=== PATIENT | female | born 1935 | race Caucasian/White ===

== ENCOUNTER 2023-04-05 08:32 | Outpatient (RCR) | payer SELFPAY, OTHER ==
--- NOTE | 2023-04-05 10:46 | HP.PTEVAL ---
Patient's Visit Information Visit Information Visit Information: ALL SEGUNDO is a 87 year old F referred to Physical Therapy by NAHED Cam with a diagnosis of LOW BACK PAIN ,OTHER INTERVERTEBRAL DISC DEGENERATION. Date of Evaluation: 04/05/23 Physical Therapist: Shane Mendoza PT, Cert MDT, OCS Visit Plan Frequency: 1visits Subjective Subjective: This 87 y/o female presents to physical therapy with low back pain. Patient had lumbar surgery with fusion 7 years ago. Patient pain progressively worse ~ 2months symptoms worse. Seen DR recommended PT. Patient fell ~ 1 month ago on left hip x-rays -. Although lumbar pain became worse thus wanted PT. Aggravating factors walking affects ADLS and standing extended period . Patient needs to muse cane . Alleviating factors rest sitting. Denies paresthesia/tingling except mild left thigh. Coughing/sneezing -. Tiffanie/bladder -. Patient sleeping okay with no pain. Patient condition affects QOL and function with ADLS and housework tasks and unable to walk without cane. Patient goals to have no pain. SOCIAL: zoroastrian Pain Left Back: Pain Intensity (Out of 10): 4 Pain Intensity Range: 10 Objective Objective: POSTURE: mild forward posture GAIT: ambulates with cane with antalgic gait left side and walks no device with poor stance due to glut Medius weakness NEURO: denies paresthesia/tingling ,reflexes L3-4,L4-5 ,L5-S1 1/3 PALAPTION: unremrakble MMT: quads 4-/5 ,hip flexion 4-/5 ,hip abd 2/5 ,ankle 4/5 hamstrings 4-/4 LUMBAR ROM: flexion mod loss ,extension mod loss ,side glides min loss Special Tests L/S Slump test left side: Negative L/S Slump test right side: Negative L/S Left Straight Leg Raise: Negative L/S Right Straight Leg Raise: Negative L Hip Scour: Negative L Hip Quadrant - Intraarticular Pathology: Negative L Hip FADDIR - Labrum: Negative L Hip Trendelenberg - Glut Medius: Positive Goals Goal 1:: Patient was provide with HEP for strengthening Rehabilitation Potential Physical Therapy Diagnosis: This patient had lumbar surgery 7 years ago and fell on left hip 1 month ago with x-rays -. Although patient has pain left hip/back and weakness especially glut Medius causes antalgics gait and needs cane will provide HEP to address and patient wants to do at home Rehabilitation Potential: Good Anticipated Interventions Patient/Client Instruction: Educate patient on: Condition and Plan of Care For the Purpose of:: To decrease pain, To increase ROM, To increase oxygenation perfusion, To improve ability to perform ADL's, To increase tolerance to activity/condition/position, To improve ability of physical actions for home/community/work/leisure, To improve health of tissue, To decrease soft tissue restriction, To increase flexibility/ROM and To improve tolerance to ADL's Other: hep Text: Thank you for the opportunity to evaluate your patient. For Medicare and Medicare HMO plans, please review the plan of care and approve it. It will need to be FAXED BACK to us at [phone] for Medicare purposes. For Medicare only, by signing this I certify the plan of care. Please let me know if there are questions or concerns regarding this plan of care. Physician Signature: Date:
== END 2023-04-05 19:00 | disposition home or self-care (01) ==
LOC: PT 08:32
PROVIDERS: PCP Physician Assistant; Visit Provider Physician Assistant
DX: M54.50 Low back pain, unspecified (principal); M51.36 Other intervertebral disc degeneration, lumbar region
CPT/HCPCS: 97110; 97162